=== PATIENT | female | born 1995 | race Asian ===

== ENCOUNTER 2017-12-02 08:36 | Emergency (ER) | payer SELFPAY ==
[2017-12-02 08:42] VITALS: TEMP 36.6
--- NOTE | 2017-12-02 09:45 | DIAGNOSTIC IMAGING REPORT ---
L WRIST W/NAVICULAR MIN 3 VIEWS CLINICAL HISTORY: 22 years-old Female presenting with left wrist pain . TECHNIQUE: Frontal, bilateral oblique, lateral, and scaphoid views of the left wrist were obtained. COMPARISON: None. FINDINGS: The scaphoid is normal. No acute fracture or malalignment. No advanced degenerative change. No radiographic soft tissue abnormality. IMPRESSION: No acute osseous injury. Electronically signed by: Brian Mcfadden M.D. 12/02/2017 9:43 AM Dictated Date/Time: 12/02/2017 9:42 AM
[2017-12-02 10:34] VITALS: BP 105/65; PULSE 69; O2SAT 98
--- NOTE | 2017-12-02 18:04 | EMERGENCY ROOM VISIT NOTE ---
ED Visit Note First contact with patient: 08:53 CHIEF COMPLAINT: Left wrist pain HISTORY OF PRESENT ILLNESS: This 22-year-old [place] female patient complains of moderate constant wrist pain that has been present for several weeks. Symptoms started mid October. No specific trauma. Pain is over the dorsal aspect in the first dorsal compartment. She tried wrapping the wrist tightly with an Jean wrap but this seemed to make her symptoms worse. The pain is worse with any movement of the wrist. No laceration, no numbness or weakness. No other injury. Her father accompanies her today. Translation service is used throughout today's visit. REVIEW OF SYSTEM: HEENT: No dizziness, visual problems, hearing loss, or tinnitus. There is no difficulty swallowing and no oral lesions are present. PULMONARY: No cough, shortness of breath, sputum production or hemoptysis. CARDIOVASCULAR: No chest pain, palpitations, shortness of breath or peripheral edema. GASTROINTESTINAL: No diarrhea, constipation, nausea, vomiting, or abdominal pain. GENITOURINARY: No dysuria, frequency, urgency or nocturia. NEUROLOGIC: No weakness, muscle tenderness, epilepsy or history of neurological problems. MUSCULOSKELETAL: No history of joint tenderness/swelling. No history of arthritis or arthralgias. SKIN: No rashes or lesions. PSYCHIATRIC: No history of depression or mental illness. ENDOCRINE: No history of diabetes, thyroid disorders, or abnormal hair growth. PMH: Supplemental sheet was not completed. Previous surgeries: None Medical history: Benign Current medications: None Allergies: NKDA SOCIAL HISTORY: Patient lives at home with her family. No tobacco use, no EtOH use. Does not speak Swedish. PHYSICAL EXAM: Vital Signs: Afebrile. Reviewed and filed in patient's chart. General: Well-developed, well-nourished, young [place] female, in no acute distress. No obvious discomfort. She is sitting on a bed. MENTAL STATUS: Alert and oriented. Skin: Warm and dry with good turgor. No rashes or lesions. Small area of skin discoloration over the first dorsal compartment. No ecchymosis or erythema. The patient is not diaphoretic. No abrasions. Musculoskeletal: There is tenderness over the extensor pollicis with no swelling. Range of motion of the wrist and digits is full. No obvious deformity. No pain with palpation over the metacarpal heads or digits. No pain with palpation over the metacarpal bases, carpal bones, or ulna. No pain over the volar surface of the radius, or dorsal surface of the radius. Positive Alex's test. There is increased pain with resisted thumb extension. There is intact motion of the digits, including opposition and circumduction of the thumb. Neurologic: The hand is warm and well perfused and the fingers have normal sensation. Median, radial, and ulnar nerve functions are clearly intact. EMERGENCY DEPARTMENT COURSE: Radiographic images obtained today of the wrist did not show any fracture. Films were reviewed by me and read by radiology as normal. DIAGNOSIS: Left wrist pain. Left wrist de Quervain's tenosynovitis. DISCHARGE INSTRUCTIONS & TREATMENT: The patient and her father were educated regarding today's findings. Conservative care measures were discussed. Velcro wrist splint was applied to the patient. Wear the wrist splint for 4 - 5 days or until the pain subsides. Ice and elevate the wrist intermittently to reduce pain and swelling. Avoid any tight wraps on the wrist. Ibuprofen, 600mg and Tylenol 1 g every 6 hours if needed for the pain. Gentle motion daily. Followup with her orthopedist or PCP if not improved over the next 10 days for physical therapy referral and possible cortisone injection. She was reassured that I do not suspect fracture, tendon rupture, or bone spur. Current/Historical Medications No Active Prescriptions or Reported Meds Allergies Coded Allergies: No Known Allergies (Unverified , 12/02/17) Vital Signs Date Time Temp Pulse Resp B/P (MAP) Pulse Ox O2 Delivery O2 Flow Rate FiO2 12/02/17 10:34 69 16 105/65 98 Room Air 12/02/17 08:42 36.6 96 20 106/72 99 Room Air Departure Information Impression Primary Impression: Tenosynovitis, de Quervain Dispostion Home / Self-Care Condition GOOD Prescriptions No Active Prescriptions or Reported Meds Referrals Brian Yadav MD Forms WORK / SCHOOL INSTRUCTIONS, HOME CARE DOCUMENTATION FORM, MOTRIN USE, IMPORTANT VISIT INFORMATION Patient Instructions My [facility] [employer] [facility] Additional Instructions Use the wrist splint for support until pain resolves Avoid wrapping the wrist too tight with any compression wrap Motrin 600 mg every 6 hours as needed with food Call [facility] on Monday for follow-up this week Avoid any heavy lifting with the left arm
== END 2017-12-02 10:40 | disposition home or self-care (01) ==
LOC: C.EDB 08:37
DX: M65.4 Radial styloid tenosynovitis [de Quervain] (principal)